=== PATIENT | female | born 1990 | race Asian ===

== ENCOUNTER → 2018-04-13 | Outpatient (CLI) | payer OTHER ==
[2018-04-13 17:11] LABS: ALKALINE PHOSPHATASE 51 U/L (45-117); ALT/SGPT 33 U/L (12-78); AST/SGOT 18 U/L (15-37); BLOOD UREA NITROGEN 10 mg/dl (7-18); CALCIUM 8.6 mg/dl (8.5-10.1); CARBON DIOXIDE 26 mmol/L (21-32); CREATININE 0.71 mg/dl (0.60-1.20); GLUCOSE 118 mg/dl (70-99); POTASSIUM 3.4 mmol/L (3.5-5.1); SODIUM 138 mmol/L (136-145); TOTAL PROTEIN 7.7 gm/dl (6.4-8.2)
== END | disposition home or self-care (01) ==
LOC: C.LAB1850 15:32
PROVIDERS: ATTEND Neuromusculoskeletal Medicine & OMM
DX: E06.3 Autoimmune thyroiditis (principal)

== ENCOUNTER 2022-07-27 08:03 | Inpatient (IN) ==
[2022-07-27] MEDS ORDERED: OXYTOCIN 30 UNITS/500 ML BAG IV PRN ×2 (08:39→15:53)
[2022-07-27] MEDS ORDERED: LIDOCAINE 1% LOCAL 20 ML VIAL INFIL PRN (08:39)
--- NOTE | 2022-07-27 08:45 | Labor Progress Brief Note ---
Date of Service July 27, 2022 Subjective at 38w4d presents with painful contractions since early this morning, becoming 5min apart and sometimes now 3-4min. No LOF, no VB, good FM. Preg c/b hypothyroid on synthroid, and has scoliosis for which she underwent anesthesia consultation and was considered a candidate for epidural. Assessment & Plan (1) Normal labor: Plan: Admit, COVID swab, manage expectantly for now, and discussed with patient that she wishes to have epidural but doesn't feel ready for one now. Would suggest she request after only a few more cm of dilation as she may not be easy to place epidural in given her scoliosis, but no need at this time if she's tolerating the discomfort with breathing techniques. She can let us know. Physical Exam Constitutional: WD/WN, vitals as above + in distress Eyes: PERRL, conjunctivae normal, anicteric sclerae ENMT: external ear and nose normal, oropharynx normal Neck: supple Respiratory: normal respiratory effort and able to speak in complete sentences; no respiratory distress Cardiovascular: Rate/Rhythm: regular rate and regular rhythm Extremities: + pedal edema Gastrointestinal (Abdomen): Gravid / AGA, nontender Musculoskeletal: no cyanosis or clubbing, extremities motor strength 5/5 Skin: no rashes, warm and dry Psychiatric: A+Ox3, euthymic affect Genitourinary: Speculum/Bimanual Exam: no vaginal lesions, no vaginal bleeding and uterus nontender OB Exam Abdomen: + vertex, + estimated weight (7) and + regular contractions (Q4) Manual OB Exam: + cervical dilation 4 cm, + cervical effacement 80%, + station -1 and + amniotic fluid (No leaking evident) OB Exam Monitor Tracing: + external FHT monitor used, + external uterine monitor used and + category I Lymphatic: no cervical or axillary lymphadenopathy Results & Data ([facility]) Vital Signs (Past 12 Hours) Vital Signs Pulse BP 07/27/22 08:11 91 H 129/69 Coding Level of Care Code None Diagnoses Normal labor O80; Z37.9
[2022-07-27 10:00] LABS: Hematocrit (blood only) 37.3 % (34.1-44.9); Hemoglobin 13.2 g/dl (12.0-16.0); Mean Corpuscular Hemoglobin 33.6 pg (25.0-34.0); Mean Corpuscular Hgb Conc 35.4 g/dL (32.0-36.0); Mean Corpuscular Volume 94.9 fL (80.0-100.0); Mean Platelet Volume 10.4 fL (9.4-12.3); Platelet Count 216 K/uL (130-400); RDW Coefficient of Variation 12.5 % (11.5-14.5); RDW Standard Deviation 43.7 fL (36.4-46.3); Red Blood Count 3.93 M/uL (3.93-5.22); White Blood Count 11.05 K/ul (4.8-10.8)
[2022-07-27] MEDS: LACTATED RINGER'S 1,000 ML IV PRN ×2 (10:22→14:19)
[2022-07-27] MEDS ORDERED: ePHEDrine sulfate 50 MG/ML AMP ONE (10:35)
--- NOTE | 2022-07-27 10:35 | Anesthesiology Consultation ---
Date of Service July 27, 2022 Assessment & Plan (1) Encounter for pre-operative examination: Chart Review Chart Review: Acceptable Risk for Labor Epidural History Height/Weight Height: 5 ft 4 in Weight: 66.224 kg Allergies Allergy/AdvReac Type Severity Reaction Status Date / Time No Known Drug Allergies Allergy Verified 07/26/22 16:07 Medications Home Medications Medication Instructions Recorded Confirmed Last Taken levothyroxine 25 mcg tablet 25 mcg PO DAILY #90 tabs 10/15/21 07/26/22 Unknown docosahexaenoic acid [ DHA] 1 ea PO DAILY 02/17/22 07/26/22 Unknown Active Medications Generic Name Dose Route Start Last Admin Trade Name Freq PRN Reason Stop Dose Admin Lactated Ringer's 1,000 mls @ 125 mls/hr 07/27/22 08:39 07/27/22 10:22 Lr IV 07/29/22 08:38 999 mls/hr .Q8H PRN Administration L&D Protocol Protocol Past Medical History Medical History Penny's thyroiditis Scoliosis Wore brace- per patient- <25 degree S curve s/p bracing No surgery needed No significant symptoms from scoliosis - no back pain- no numbness or tingling to LEs Subclinical hypothyroidism Past Family History Family History Grandmother (Maternal) Myocardial infarction Grandfather (Paternal) Prostate cancer Mother Cancer tongue cancer Grandmother (Paternal) Diabetes Other Hypertension No family history of adverse response to anesthesia No family history of bleeding disorder Denies family history of Colon cancer Ovarian cancer Breast cancer Uterine cancer Past Surgical History Surgical History History of wisdom tooth extraction Social History Smoking Status: Never smoker Hx Alcohol Use: No Hx Substance Use: No substance use type: does not use Physical Exam Vital Signs Last Vital Signs Temp 37.0 C 07/27/22 10:01 Pulse 91 H 07/27/22 08:11 Resp 20 07/27/22 10:01 BP 129/69 07/27/22 08:11 Testing Laboratory Results 07/27/22 09:42
[2022-07-27] MEDS ORDERED: fentaNYL 2MCG/ML ROPIVACAINE 1.25MG/ML 100 ML BAG EPI ONE (10:36)
[2022-07-27] MEDS ORDERED: fentaNYL citrate 100 MCG/2 ML VIAL ONE (10:36)
[2022-07-27] MEDS ORDERED: BUPIVACAINE 0.25% 30 ML VIAL ONE (10:36)
[2022-07-27] MEDS ORDERED: SODIUM CHLORIDE 0.9% INJ 10 ML VIAL ONE (10:36)
[2022-07-27] MEDS ORDERED: LIDOCAINE 2%/EPINEPHRINE 1:200,000 20 ML SDV ONE (10:36)
[2022-07-27] MEDS ORDERED: ONDANSETRON INJ 2 MG/ML 2 ML VIAL IV PRN (11:09)
[2022-07-27] MEDS ORDERED: ePHEDrine sulfate 50 MG/ML AMP IV PRN (11:09)
[2022-07-27] MEDS ORDERED: fentaNYL 2MCG/ML ROPIVACAINE 1.25MG/ML 100 ML BAG EPI PRN (11:09)
[2022-07-27] MEDS ORDERED: NALOXONE HCL 0.4 MG/1 ML VIAL/CARP IV PRN (11:09)
[2022-07-27] MEDS ORDERED: NALOXONE HCL 1 MG in SODIUM CHLORIDE 0.9% 1000ML 1,000 ML IV PRN (11:09)
--- NOTE | 2022-07-27 15:42 | Delivery Summary ---
Vaginal Delivery Summary Date of Service July 27, 2022 Vaginal Delivery Summary DIAGNOSES: 1. Gonzalez intrauterine at 38w4d gestation. 2. Spontaneous onset of labor. 3. Group B Streptococcus Neg. PROCEDURE: Spontaneous vaginal delivery and repair of third degree laceration. SURGEON: Lexy Reynoso MD. LEAFLET OR NEWSPAPER DELIVERER: None. ESTIMATED BLOOD LOSS: 400 mL. COMPLICATIONS: None. PLACENTA: Spontaneous and intact with a 3-vessel cord. DISPOSITION: Stable to labor and delivery. DESCRIPTION: The patient pushed well and brought the head to in DOA position. The infant's head was allowed to deliver with contraction force and no further active pushing, with the perineum protected during this time. Despite this protection and controlled , a significant perineal tear was seen to occur as the head emerged. There was no nuchal cord. The left shoulder was anterior. The shoulders and body delivered without any difficulty, and the infant was placed on the maternal abdomen. It was vigorous and moving all extremities, and making respiratory efforts. The cord was doubly clamped by the MD and then cut by the FOB. The placenta delivered spontaneously and was noted to be intact and with a 3VC. The cervix, vagina and perineum were examined and were found to have a complete third-degree laceration, with transection of the anal sphincter at 12 o'clock, and skin separation that extended to but not past the anal verge. Repair began by identifying each end of the anal sphincter and grasping it with Allis. The ends were brought together and reapproximated with 1-vicryl suture in a figure of eight manner on the anterior aspect of the sphincter (including the muscle and capsule), then a second figure of eight suture was placed on the posterior aspect of the sphincter (including muscle and capsule), bringing the ends together firmly. The remaining laceration was closed as per usual methods for a second-degree, including 3-0 vicryl in a running locked manner on the posterior vagina, a 2-0 vicryl suture for several crown stitches to rebuild the perineal body, and a subcuticular closure with the remainder of the 3-0 vicryl from the posterior fourchette to the anus. There was no disruption of the rectum and no sutures in the rectum after repair. The fundus was firm and lochia minimal immediately after delivery. [facility] [place] Vaginal Delivery Charge Vaginal Delivery Codes: 90213 global code for the antepartum, delivery, and post-
[2022-07-27] MEDS ORDERED: HYDROCORTISONE ACETATE 25 MG SUPP PR PRN (15:53)
[2022-07-27] MEDS ORDERED: oxyCODONE/ACETAMINOPHEN 5mg/325mg TAB PO PRN (15:53)
[2022-07-27] MEDS ORDERED: LACTATED RINGER'S 1,000 ML IV SCH (15:53)
[2022-07-27] MEDS ORDERED: bisacodyL 10 MG SUPP PR PRN (15:53)
[2022-07-27] MEDS ORDERED: DIPHTHERIA/TETANUS/PERTUSSIS 0.5 ML SYR/VIAL IM ONE (15:53)
[2022-07-27] MEDS ORDERED: BENZOCAINE 20% AER SPR 82.5 GM CAN EXT PRN (15:53)
[2022-07-27] MEDS ORDERED: ACETAMINOPHEN 325 MG TAB PO PRN (15:53)
--- NOTE | 2022-07-27 15:55 | Anesthesia Procedure Note ---
Date of Service July 27, 2022 Anesthesia Post Epidural Note Vital Signs Vital Signs: Temp Pulse Resp BP Pulse Ox 37.0 C 90 20 110/64 95 07/27/22 10:01 07/27/22 15:51 07/27/22 10:01 07/27/22 15:51 07/27/22 15:02 Notes Mental Status: alert / awake / arousable and participated in evaluation Nausea / Vomiting: adequately controlled Pain: adequately controlled Airway Patency, RR, SpO2: stable & adequate BP & HR: stable & adequate Hydration State: stable & adequate Neuraxial Anesthesia: was administered and sensory block is resolving Anesthetic Complications: no major complications apparent Epidural: Removed without complications and With tip intact
[2022-07-27] MEDS: IBUPROFEN 600 MG TAB PO PRN (20:13)
[2022-07-27] MEDS: DOCUSATE SODIUM 100 MG CAP PO SCH (21:05)
[2022-07-28] MEDS: IBUPROFEN 600 MG TAB PO PRN ×5 (00:22→20:33)
[2022-07-28] MEDS: LEVOTHYROXINE SODIUM 25 MCG TABLET PO SCH (06:08)
--- NOTE | 2022-07-28 06:25 | Obstetrical Progress Note ---
Date of Service <Cisco Hinkle DO - Last Filed: 07/28/22 06:25> July 28, 2022 Assessment & Plan <Cisco Hinkle DO - Last Filed: 07/28/22 06:25> (1) Vaginal delivery: Plan - Feels well today. Eating well, voiding well, ambulating well. - Pain well controlled with ibuprofen 600mg Q4H PRN - Routine care -- OOB, ambulation, diet progression as tolerated - After discharge will have 6 week follow-up with Dr. Reynoso - 3 degree laceration healing well. Day #:: 1 <Lexy Reynoso MD - Last Filed: 07/28/22 07:07> (1) Vaginal delivery: Subjective <Cisco Hinkle DO - Last Filed: 07/28/22 06:25> Ambulation: ambulating normally Voiding: no voiding problems Passing Gas:: Yes Diet Tolerance:: regular diet Lochia:: Small Feeding Type:: breast feeding Current Pain Level(1-10): 3 Review of Systems Denies fever, chills, sweats Denies shortness of breath, difficulty breathing, chest pain, palpitations, danny st pressure. Denies breast pain. Denies dysuria. Denies headache or changes in vision. Physical Exam <Cisco Hinkle DO - Last Filed: 07/28/22 06:25> General: Alert, oriented. No acute distress. Cardiac: Regular rate and rhythm, no murmurs/rubs/gallops. Respiratory: Clear to auscultation bilaterally a/p, no wheezes/rales/rhonchi. No increased work of breathing. Symmetrical chest rise. No respiratory distress. Abdomen: Soft, nontender, nondistended. Bowel sounds present. Uterus: Uterine fundus firm, palpable 1cm cm below umbilicus. Lower Extremities: No lower extremity edema or swelling. No deep calf pain. Chiki's negative bilaterally. Results & Data ([facility]) <Cisco iHnkle DO - Last Filed: 07/28/22 06:25> Vital Signs (Past 12 Hours) Vital Signs Temp Pulse Resp BP Pulse Ox O2 Del Method 07/28/22 04:10 36.7 C 71 18 108/69 98 Room Air 07/27/22 19:40 36.8 C 87 18 108/76 97 Room Air 07/28/22 00:05 36.8 C 80 18 98/57 L 98 Room Air <Lexy Reynoso MD - Last Filed: 07/28/22 07:07> Co-Signing Physician Notes Resident Physician Supervision Note: I interviewed and examined the patient. Discussed with Dr. Hinkle and agree with findings and plan as documented in the note. Any exceptions or clarifications are listed here: [ ] Documented By: Lexy Reynoso MD, FACOG Resident Activity Tracking <Cisco Hinkle DO - Last Filed: 07/28/22 06:25> Resident Involvement: Resident Care Provided Care Provided: OB Delivery
[2022-07-28 08:33] LABS: Hemoglobin 9.6 g/dl (12.0-16.0); Mean Corpuscular Hgb Conc 34.3 g/dL (32.0-36.0); Mean Corpuscular Volume 96.2 fL (80.0-100.0); Mean Platelet Volume 10.3 fL (9.4-12.3); Platelet Count 185 K/uL (130-400); RDW Coefficient of Variation 12.7 % (11.5-14.5); RDW Standard Deviation 44.2 fL (36.4-46.3); Red Blood Count 2.91 M/uL (3.93-5.22); White Blood Count 16.95 K/ul (4.8-10.8)
[2022-07-28] MEDS: PRENATAL VITAMIN 1 TAB PO SCH (08:56)
[2022-07-28] MEDS: DOCUSATE SODIUM 100 MG CAP PO SCH ×2 (08:56→20:33)
[2022-07-28] MEDS ORDERED: NON-FORMULARY MEDICATION (Prenat.Vits,Cal,Min-Iron-Folic Tablet) PO SCH (09:00)
[2022-07-28] MEDS ORDERED: bisacodyL 5 MG TABEC PO SCH (20:00)
[2022-07-29] MEDS ORDERED: bisacodyL 5 MG TABEC PO SCH
[2022-07-29] MEDS: IBUPROFEN 600 MG TAB PO PRN ×2 (03:40→07:47)
--- NOTE | 2022-07-29 06:44 | Obstetrical Progress Note ---
Date of Service <Cisco Hinkle DO - Last Filed: 07/29/22 07:44> July 29, 2022 Assessment & Plan <Cisco Hinkle DO - Last Filed: 07/29/22 07:44> (1) Vaginal delivery: Plan - Feels well today. Eating well, voiding well, ambulating well. - Pain well controlled with ibuprofen 600mg Q4H PRN - Routine care -- OOB, ambulation, diet progression as tolerated - After discharge will have 6 week follow-up with Dr. Reynoso - 3 degree laceration healing well. Reassured patient that this is normal. - Will D/C today. Day #:: 2 <Chanel Quevedo, DO - Last Filed: 07/29/22 07:49> (1) Vaginal delivery: Subjective <Cisco Hinkle DO - Last Filed: 07/29/22 07:44> Ambulation: ambulating normally Voiding: no voiding problems Passing Gas:: Yes Diet Tolerance:: regular diet Lochia:: Small Feeding Type:: breast feeding Current Pain Level(1-10): 2 She states that the area between her anus and vagina are swollen. Review of Systems Denies fever, chills, sweats Denies shortness of breath, difficulty breathing, chest pain, palpitations, chest pressure. Denies breast pain. Denies dysuria. Denies headache or changes in vision. Physical Exam <Cisco Hinkle DO - Last Filed: 07/29/22 07:44> General: Alert, oriented. No acute distress. Cardiac: Regular rate and rhythm, no murmurs/rubs/gallops. Respiratory: Clear to auscultation bilaterally a/p, no wheezes/rales/rhonchi. No increased work of breathing. Symmetrical chest rise. No respiratory distress. Abdomen: Soft, nontender, nondistended. Bowel sounds present. Uterus: Uterine fundus firm, palpable 2cm cm below umbilicus. Lower Extremities: No lower extremity edema or swelling. No deep calf pain. Chiki's negative bilaterally. Results & Data ([facility]) <Cisco Hinkle DO - Last Filed: 07/29/22 07:44> Vital Signs (Past 12 Hours) Vital Signs Temp Pulse Resp BP O2 Del Method 07/29/22 04:15 36.5 C 83 16 105/65 Room Air 07/28/22 20:55 Room Air 07/28/22 20:55 36.7 C 98 H 18 114/70 Room Air <Chanel Quevedo DO - Last Filed: 07/29/22 07:49> Co-Signing Physician Notes Resident Physician Supervision Note: I was present with Dr. Hinkle during the history and exam. I discussed the case with the resident and agree with the findings and plan as documented in the note. Any exceptions or clarifications are listed here: PPD#2 doing well, reviewed discharge instructions. DC home, followup in office 6w. Documented By: Chanel Quevedo DO Resident Activity Tracking <Cisco Hinkle, - Last Filed: 07/29/22 07:44> Resident Involvement: Resident Care Provided Care Provided: OB Delivery
[2022-07-29] MEDS: LEVOTHYROXINE SODIUM 25 MCG TABLET PO SCH (07:46)
[2022-07-29] MEDS: PRENATAL VITAMIN 1 TAB PO SCH (07:46)
[2022-07-29] MEDS: DOCUSATE SODIUM 100 MG CAP PO SCH (07:46)
[2022-07-29 08:54] LABS: Hematocrit (blood only) 25.1 % (34.1-44.9); Hemoglobin 8.5 g/dl (12.0-16.0)
== END 2022-07-29 14:48 | disposition home or self-care (01) | DRG 768 ==
LOC: OPB 08:03 → 4S1 08:04 → 4E2 19:30